=== PATIENT | female | born 1960 | race Caucasian/White ===

== ENCOUNTER 2016-03-30 17:22 | Emergency (ER) | payer MEDICARE, OTHER ==
[2016-03-30 17:35] VITALS: BP 123/77
[2016-03-30] MEDS ORDERED: NORMAL SALINE 1,000 ML IV ONE (17:54)
[2016-03-30] MEDS ORDERED: BISACODYL 5 MG TABLET.DR PO ONE (17:55)
[2016-03-30] MEDS ORDERED: MAGNESIUM CITRATE 300 ML BTL PO ONE ×2 (17:55→19:35)
[2016-03-30] MEDS ORDERED: SENNOSIDES 8.6 MG TABLET PO ONE (17:55)
[2016-03-30] MEDS ORDERED: BISACODYL 5 MG TABLET.DR ONE ×2 (18:01→18:06)
[2016-03-30] MEDS ORDERED: MAGNESIUM CITRATE 300 ML BTL ONE (18:01)
[2016-03-30] MEDS ORDERED: SENNOSIDES 8.6 MG TABLET ONE (18:01)
--- NOTE | 2016-03-30 18:08 | ERNOTE ---
Abdominal HPI - Narrative Date of Service: 03/30/16 - General Chief Complaint: Constipation Time Seen by Provider: 03/30/16 17:47 Source: patient Exam Limitations: no limitations - Immun/Allergies/Home Medications Immunizatons: IMMUNIZATION HX Immunizations Up to Date Yes History of Influenza Vaccine Yes Hx Pneumococcal Vaccination Yes Allergies/Adverse Reactions: Allergies lisinopril Allergy (Mild, Verified 03/30/16 17:35) cough doxycycline Adverse Reaction (Intermediate, Verified 03/30/16 17:35) Other "Severly elevated liver enzymes" metformin Adverse Reaction (Mild, Verified 03/30/16 17:35) HEADACHE, VOMITING adhesive Adverse Reaction (Verified 03/30/16 17:35) Home Medications: HOME MEDICATIONS Albuterol Sulfate [Proair Respiclick] 1 - 2 puff IH Q4H PRN 03/30/16 [Last Taken Unknown] Aspirin [David Chewable Aspirin] 81 mg PO DAILY 03/30/16 [Last Taken Unknown] Atenolol [Tenormin] 100 mg PO DAILY 03/30/16 [Last Taken Unknown] Atorvastatin Calcium [Lipitor] 20 mg PO HS 03/30/16 [Last Taken Unknown] Bisacodyl [Dulcolax] 5 mg PO DAILY #30 tab 03/30/16 [Last Taken Unknown] Cetirizine HCl [Zyrtec] 10 mg PO DAILY 03/30/16 [Last Taken Unknown] Docusate Sodium [Colace] 2 cap PO BID #120 capsule 03/30/16 [Last Taken Unknown] Duloxetine HCl [Cymbalta] 60 mg PO DAILY 03/30/16 [Last Taken Unknown] Ergocalciferol (Vitamin D2) [Vitamin D2] 2,000 units PO DAILY 03/30/16 [Last Taken Unknown] Esomeprazole Magnesium [Nexium] 40 mg PO DAILY 03/30/16 [Last Taken Unknown] Famotidine [Heartburn Prevention] 20 mg PO DAILY 03/30/16 [Last Taken Unknown] Gabapentin [Neurontin] 600 mg PO BID 03/30/16 [Last Taken Unknown] Insulin Aspart [Novolog] 10 units SC ACHS 03/30/16 [Last Taken Unknown] Insulin Glargine,Hum.rec.anlog [Lantus] 15 units SC BID 03/30/16 [Last Taken Unknown] Lamotrigine [Lamictal Xr] 100 mg PO DAILY 03/30/16 [Last Taken Unknown] Levothyroxine Sodium [Synthroid] 50 mcg PO DAILY 03/30/16 [Last Taken Unknown] Losartan/Hydrochlorothiazide [Hyzaar 100-12.5 Tablet] 1 each PO DAILY 03/30/16 [ Last Taken Unknown] Magnesium Hydroxide [Milk Of Magnesia] 30 ml PO DAILY PRN #900 ml 03/30/16 [ Last Taken Unknown] Multivitamin [One Daily Essential] 1 each PO DAILY 03/30/16 [Last Taken Unknown] Naproxen [Naprosyn] 500 mg PO BID PRN 03/30/16 [Last Taken Unknown] Sennosides/Docusate Sodium [Senokot-S] 2 tab PO BID #120 tab 03/30/16 [Last Taken Unknown] Topiramate [Topamax] 100 mg PO BID 03/30/16 [Last Taken Unknown] traMADol HCL [Ultram] 50 mg PO BID 03/30/16 [Last Taken Unknown] - History of Present Illness Narrative: Decades of chronic constipation. Followed also in [place] for this. No BM for a week, right sided abdominal pain steadily worsening. No vomiting. Unable to get her bowels to move. Timing: constant, getting worse Quality: moderate, cramping Activities at Onset: none Modifying Factors - (Improves): Present: other - nothing Modifying Factors - (Worsens): Present: eating Associated Symptoms: Present: loss of appetite, swelling/mass in abdomen Prior Abdominal Problems: Present: similar symptoms Prior Treatment: Present: recently seen. Absent: currently on antibiotics Review of Systems - Review of Systems Constitutional: Present: no symptoms reported EYE: Present: no symptoms reported ENT: Present: no symptoms reported Respiratory: Present: no symptoms reported Cardiology: Present: no symptoms reported Gastrointestinal/Abdominal: Present: See HPI Genitourinary: Present: no symptoms reported Musculoskeletal: Present: no symptoms reported Skin: Present: no symptoms reported Neurological: Present: no symptoms reported Endocrine: Present: no symptoms reported Hematologic/Lymphatic: Present: no symptoms reported Psych: Present: no symptoms reported All Other Systems: All systems neg except as marked - Patient's Past Medical History Patient History - Medical: Anemia, Anxiety, Arthritis, Diabetes Type 2, Depression, Fibromyalgia, GERD, Headache, Hypothyroidism, Seizures, UTI'S Patient History - Cardiac/Respiratory: Hypertension Patient History - Cancer: No Hx of Cancer Patient History - Surgical Procedures: Appendectomy, Cholecystectomy, Colonoscopy, EGD, Tubal Ligation - Family History Mother Family History - Medical: , Alzheimer's Disease Family History - Cardiac/Respiratory: No pertinent hx Father Family History - Medical: , Diabetes Type 2 Family History - Cardiac/Respiratory: Myocardial Infarction - Social History Living Situations: spouse Smoking Status: Never smoker Have you smoked in the past 12 months: No Alcohol Use: none Drug Use: none Physical Exam - Physical Exam General Appearance: Present: wd/wn, alert, no apparent distress, anxious Eye Exam: Normal inspection: bilateral, PERRL: bilateral, EOMI: bilateral Ears, Nose, Throat: Present: normal ENT inspection, hearing grossly normal Neck: Present: normal inspection Respiratory: Present: no respiratory distress, normal breath sounds Cardiovascular/Chest: Present: regular rate, rhythm, no murmur Gastrointestinal/Abdominal: Present: normal bowel sounds, soft, tenderness - diffuse mild tenderness, distended Back Exam: Present: normal inspection, no CVA tenderness, no vertebral tenderness Extremity Exam: Present: normal inspection, non-tender Neurological Exam: Present: alert, oriented, normal mood/affect, no motor/ sensory deficits Skin Exam: Present: normal color, warm/dry ED Progress - Results and Orders Patient's Lab Results:: I have reviewed the patient's lab results. - Vital Signs Patient's Vital Signs:: I have reviewed the patient's vital signs. Vital Signs: Vital Signs 03/30/16 17:29 Temperature 36.2 C L Pulse Rate 63 Respiratory 14 Rate Blood Pressure 123/77 O2 Sat by Pulse 99 Oximetry - X-Ray X-Ray #1 X-Ray: abdomen Interpretation: Interp. by me - gas and retained stool - Progress/Reassessment Chief Complaint: Constipation Progress:: Improved Departure - Departure Clinical Impression: Constipation Qualifiers: Constipation type: slow transit constipation Qualified Code(s): K59.01 - Slow transit constipation Disposition: Home self-care Condition: Good Instructions: Constipation, Adult, [id number] Additional Instructions: Take your medication for constipation very regularly. Obtain and read the book "Gulp" See your doctor in 1-2 weeks. Referrals: [Primary Care Provider] - Prescriptions: Bisacodyl [Dulcolax] 5 mg PO DAILY #30 tab Docusate Sodium [Colace] 2 cap PO BID #120 capsule Magnesium Hydroxide [Milk Of Magnesia] 30 ml PO DAILY PRN #900 ml PRN Reason: Constipation Sennosides/Docusate Sodium [Senokot-S] 2 tab PO BID #120 tab
[2016-03-30 18:10] LABS: Hematocrit 43.1 % (37.0-47.0); Hemoglobin 13.9 gm/dL (12.5-16.0); Mean Cell Volume 95.1 fl (78-100); Mean Corpuscular Hemoglobin 30.7 pg (27-31); Mean Corpuscular Hgb Conc 32.3 g/dl (32-36); Mean Platelet Volume 10.2 fl (6.0-9.5); Neutrophil # 5.6 K/mm3 (1.3-6.0); Neutrophil % 57.4 % (42-75.0); Platelet Count 312 K/mm3 (150-450); Red Blood Count 4.53 M/mm3 (4.2-5.4); Red Cell Distribution Width 12.5 % (11.5-14.0); White Blood Count 9.8 K/mm3 (4.0-10.5)
[2016-03-30 18:23] LABS: Albumin * 3.7 gm/dl (3.4-5.0); Anion Gap 13.4 mmol/L (6.8-13.8); BUN/Creatinine Ratio 17.3 (9.0-21.6); Bilirubin, Total 0.2 mg/dL (0.0-1.1); Ca. Corrected For Albumin 8.9 mg/dL (8.4-10.2); Carbon Dioxide 28.2 mmol/L (24-32.6); Potassium 3.6 mmol/L (3.4-4.6); Total Protein 7.5 gm/dL (6.2-8.2)
== END 2016-03-30 20:36 | disposition home or self-care (01) ==
LOC: ER 17:22
DX: K59.01 Slow transit constipation (principal); Z90.49 Acquired absence of other specified parts of digestive tract; E11.9 Type 2 diabetes mellitus without complications; K21.9 Gastro-esophageal reflux disease without esophagitis; E03.9 Hypothyroidism, unspecified; F32.9 Major depressive disorder, single episode, unspecified

== ENCOUNTER 2016-11-24 12:28 | Emergency (ER) | payer MEDICARE, OTHER ==
[2016-11-24 12:41] VITALS: BP 139/89
[2016-11-24 13:27] LABS: Hematocrit 39.8 % (37.0-47.0); Hemoglobin 13.8 gm/dL (12.5-16.0); Mean Cell Volume 90.2 fl (78-100); Mean Corpuscular Hemoglobin 31.3 pg (27-31); Mean Corpuscular Hgb Conc 34.7 g/dl (32-36); Mean Platelet Volume 10.2 fl (6.0-9.5); Neutrophil % 53.1 % (42-75.0); Platelet Count 255 K/mm3 (150-450); Red Blood Count 4.41 M/mm3 (4.2-5.4); Red Cell Distribution Width 12.3 % (11.5-14.0); White Blood Count 7.5 K/mm3 (4.0-10.5)
--- NOTE | 2016-11-24 13:45 | ERNOTE ---
Medical Problem HPI - Narrative Date of Service: 11/24/16 - General Chief Complaint: General Assessment Time Seen by Provider: 11/24/16 12:45 Source: patient Exam Limitations: no limitations - Immun/Allergies/Home Medications Immunizations: IMMUNIZATION HX Immunizations Up to Date Yes History of Influenza Vaccine Yes Hx Pneumococcal Vaccination Yes Allergies/Adverse Reactions: Allergies lisinopril Allergy (Mild, Verified 11/24/16 12:41) cough oxycodone Allergy (Verified 11/24/16 12:41) doxycycline Adverse Reaction (Intermediate, Verified 11/24/16 12:41) Other "Severly elevated liver enzymes" metformin Adverse Reaction (Mild, Verified 11/24/16 12:41) HEADACHE, VOMITING adhesive Adverse Reaction (Verified 11/24/16 12:41) Home Medications: HOME MEDICATIONS Albuterol Sulfate [Proair Respiclick] 1 - 2 puff IH Q4H PRN 03/30/16 [Last Taken Unknown] Aspirin [David Chewable Aspirin] 81 mg PO DAILY 03/30/16 [Last Taken Unknown] Atenolol [Tenormin] 100 mg PO DAILY 03/30/16 [Last Taken Unknown] Atorvastatin Calcium [Lipitor] 20 mg PO HS 03/30/16 [Last Taken Unknown] Cetirizine HCl [Zyrtec] 10 mg PO DAILY 03/30/16 [Last Taken Unknown] Gabapentin [Neurontin] 600 mg PO BID 03/30/16 [Last Taken Unknown] Insulin Aspart [Novolog] 10 units SC ACHS 03/30/16 [Last Taken Unknown] Insulin Glargine,Hum.rec.anlog [Lantus] 15 units SC BID 03/30/16 [Last Taken Unknown] Levothyroxine Sodium [Synthroid] 50 mcg PO DAILY 03/30/16 [Last Taken Unknown] Losartan/Hydrochlorothiazide [Hyzaar 100-12.5 Tablet] 1 each PO DAILY 03/30/16 [ Last Taken Unknown] Multivitamin [One Daily Essential] 1 each PO DAILY 03/30/16 [Last Taken Unknown] Sennosides/Docusate Sodium [Senokot-S] 2 tab PO BID #120 tab 03/30/16 [Last Taken Unknown] Topiramate [Topamax] 100 mg PO BID 03/30/16 [Last Taken Unknown] lamoTRIgine [Lamictal Xr] 150 mg PO DAILY 03/30/16 [Last Taken Unknown] traMADol HCL [Ultram] 50 mg PO BID 03/30/16 [Last Taken Unknown] Docusate Sodium [Colace] 1 cap PO BID 11/24/16 [Last Taken Unknown] Haloperidol [Haldol] 1 mg PO BID #30 tablet 11/24/16 [Last Taken Unknown] - History of Present History Narrative: Pt. comes in with c/o depression, anxiety, fatigue, malaise, generalized pain, and palpitations, for 4 days. Pt. has a hx of mental illness and her topamax and Valium was increased on Thursday by Dr Eaton and pt. states that after she took the increased dosage she felt like she was extremely fatigued with heaviness of her limbs and palpitations then she stopped taking the valium and cut the topamax in half and developed more palpitations and fatigue. Review of Systems - Review of Systems Constitutional: Present: weakness, fatigue, malaise, decreased activity level EYE: Present: no symptoms reported ENT: Present: no symptoms reported Respiratory: Present: no symptoms reported. Absent: shortness of breath, cough , wheezing Cardiology: Present: palpitations. Absent: chest pain, syncope, edema Gastrointestinal/Abdominal: Present: no symptoms reported Genitourinary: Present: no symptoms reported Musculoskeletal: Present: no symptoms reported. Absent: back pain, joint pain Skin: Present: no symptoms reported. Absent: rash, change in color Neurological: Present: no symptoms reported. Absent: headache, dizziness/light- headedness, numbness, tingling Psych: Present: anxiety, depressed, emotional problems All Other Systems: All systems neg except as marked - Patient's Past Medical History Patient History - Medical: Anemia, Anxiety, Arthritis, Diabetes Type 2, Depression, Fibromyalgia, GERD, Headache, Hypothyroidism, Seizures, UTI'S Patient History - Cardiac/Respiratory: Asthma, Hypertension, Hyperlipidemia, Sleep Apnea Patient History - Cancer: No Hx of Cancer Patient History - Surgical Procedures: Appendectomy, Cholecystectomy, Colonoscopy, EGD, Tubal Ligation Patient History - Other: None - Family History Mother Family History - Medical: , Alzheimer's Disease Family History - Cardiac/Respiratory: No pertinent hx Father Family History - Medical: , Diabetes Type 2 Family History - Cardiac/Respiratory: Myocardial Infarction - Social History Living Situations: home Abuse History: No History of abuse Psych History: Hx of Anxiety, Hx of Depression, Current tx/ever been on anti- depressants or anti-anxiety meds Alcohol Use: none Drug Use: none - Immunizations Immunizations Up to Date: Yes Hx Pneumococcal Vaccination: Yes History of Influenza Vaccine: Yes Physical Exam - Physical Exam General Appearance: Present: wd/wn, alert, no apparent distress Head Exam: Present: normal inspection, no evidence of injury Eye Exam: Normal inspection: bilateral, PERRL: bilateral, EOMI: bilateral Ears, Nose, Throat: Present: normal ENT inspection, normal pharynx Neck: Present: normal inspection, nontender. Absent: lymphadenopathy (R), lymphadenopathy (L) Respiratory: Present: no respiratory distress, normal breath sounds, no accessory muscle use, chest nontender, lungs clear Cardiovascular/Chest: Present: regular rate, rhythm, no murmur, normal peripheral pulses Gastrointestinal/Abdominal: Present: normal bowel sounds, nontender, nondistended, soft, no organomegaly Back Exam: Present: normal inspection, normal range of motion, no CVA tenderness , no vertebral tenderness Extremity Exam: Present: normal inspection, non-tender, normal range of motion, no edema Neurological Exam: Present: alert, oriented, no motor/sensory deficits, other - depressed mood tearful Skin Exam: Present: normal color, warm/dry. Absent: pallor, skin rash ED Progress - Date and Time Seen: Date and Time: 11/24/16 13:43 As pt. is tearful and has been experiencing multiple medication changes that can affect her and develop these symptoms feel that the medication plus her underlying mental condition is the reason for her symptomology and will discuss with Dr Eaton after clearing her medically. 11/24/16 14:[address] Eaton and he recommends starting pt. on Haldol for symptom management. 11/24/16 15:01 Pt. less anxious after haldol injection but is fatigued so will start on this very low dosage. - Results and Orders Patient's Lab Results:: I have reviewed the patient's lab results. - Vital Signs Patient's Vital Signs:: I have reviewed the patient's vital signs. Vital Signs: Vital Signs 11/24/16 12:38 Temperature 36.5 C Pulse Rate 104 H Respiratory 12 Rate Blood Pressure 139/89 O2 Sat by Pulse 97 Oximetry - EKG EKG: NSR EKG read: Reviewed by me EKG Comments: interp by Dr Fisher - Progress/Reassessment Chief Complaint: General Assessment Departure - Departure Clinical Impression: Anxiety and depression Medication adverse effect Qualifiers: Encounter type: initial encounter Qualified Code(s): T88.7XXA - Unspecified adverse effect of drug or medicament, initial encounter Disposition: Home self-care Additional Instructions: Please follow up with Dr Eaton in 1-2 days. Referrals: Eddie Hartmann DO [Primary Care Provider] - Prescriptions: Haloperidol [Haldol] 1 mg PO BID #30 tablet
[2016-11-24 13:48] LABS: ALT 38 U/L (19-67); AST 25 U/L (0-48); Albumin * 3.4 gm/dl (3.4-5.0); Alkaline Phosphatase * 125 U/L (50-170); Anion Gap 13.9 mmol/L (6.8-13.8); BUN/Creatinine Ratio 12.1 (9.0-21.6); Bilirubin, Total 0.2 mg/dL (0.0-1.1); Blood Urea Nitrogen 12 mg/dL (3-23); Ca. Corrected For Albumin 10.3 mg/dL (8.4-10.2); Calcium * 10.1 mg/dL (7.9-10.9); Carbon Dioxide 27.5 mmol/L (24-32.6); Chloride 104 mmol/L (97-106); Glucose * 157 mg/dL (70-110); Potassium 3.4 mmol/L (3.4-4.6); Sodium 142 mmol/L (132-142); TSH * 3.117 uIU/mL (0.358-3.74)
[2016-11-24] MEDS ORDERED: HALOPERIDOL LACTATE 5 MG/ML VIAL IM ONE (13:56)
[2016-11-24 14:01] LABS: Urine Bilirubin Negative (NEGATIVE); Urine Blood Negative /ul (NEGATIVE); Urine Ketone Negative (NEGATIVE); Urine Nitrite Negative (NEGATIVE); Urine Protein Negative (NEGATIVE); Urine Specific Gravity <=1.005 SP.GR. (1.005-1.010); Urine Urobilinogen Normal (NORMAL)
[2016-11-24] MEDS ORDERED: HALOPERIDOL LACTATE 5 MG/ML VIAL ONE (14:07)
[2016-11-24 14:13] LABS: Urine Appearance Clear; Urine Bacteria None Seen; Urine Color Yellow; Urine RBC None Seen /hpf (0-5); Urine WBC None Seen /hpf (0-5); Urine Yeast TRACE
[2016-11-24 15:07] LABS: Cocaine Ur Negative (NEGATIVE); Urine Barbiturate Negative (NEGATIVE); Urine Benzodiazepines Negative (NEGATIVE); Urine Opiates Negative (NEGATIVE); Urine PCP Negative (NEGATIVE); Urine THC Negative (NEGATIVE)
== END 2016-11-24 15:13 | disposition home or self-care (01) ==
LOC: ER 12:28
DX: F41.8 Other specified anxiety disorders (principal); T88.7XXA Unspecified adverse effect of drug or medicament, initial encounter; D64.9 Anemia, unspecified; M19.90 Unspecified osteoarthritis, unspecified site; M79.7 Fibromyalgia; K21.9 Gastro-esophageal reflux disease without esophagitis; E03.9 Hypothyroidism, unspecified; I10 Essential (primary) hypertension; E78.5 Hyperlipidemia, unspecified
CPT/HCPCS: 36415; 80053; 80307; 81001; 84443; 85025; 93005; 96372; 99285; G0481

== ENCOUNTER 2016-11-28 18:41 | Emergency (ER) | payer MEDICARE, OTHER ==
[2016-11-28 19:39] LABS: Hematocrit 40.6 % (37.0-47.0); Mean Corpuscular Hemoglobin 31.4 pg (27-31); Mean Corpuscular Hgb Conc 34.5 g/dl (32-36); Mean Platelet Volume 10.1 fl (6.0-9.5); Neutrophil # 3.9 K/mm3 (1.3-6.0); Neutrophil % 49.9 % (42-75.0); Platelet Count 254 K/mm3 (150-450); Red Blood Count 4.46 M/mm3 (4.2-5.4); Red Cell Distribution Width 12.1 % (11.5-14.0); White Blood Count 7.9 K/mm3 (4.0-10.5)
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
[2016-11-28 19:58] LABS: ALT 39 U/L (19-67); AST 28 U/L (0-48); Albumin * 3.5 gm/dl (3.4-5.0); Alkaline Phosphatase * 119 U/L (50-170); Anion Gap 12.4 mmol/L (6.8-13.8); BUN/Creatinine Ratio 10.7 (9.0-21.6); Bilirubin, Total 0.4 mg/dL (0.0-1.1); Blood Urea Nitrogen 12 mg/dL (3-23); Ca. Corrected For Albumin 10.6 mg/dL (8.4-10.2); Calcium * 10.5 mg/dL (7.9-10.9); Carbon Dioxide 29.9 mmol/L (24-32.6); Chloride 103 mmol/L (97-106); Glucose * 198 mg/dL (70-110); Potassium 3.3 mmol/L (3.4-4.6); Sodium 142 mmol/L (132-142); Troponin I Less than 0.017 ng/ml (0.00-0.10)
[2016-11-28 20:50] VITALS: BP 119/71
== END 2016-11-28 20:40 | disposition home or self-care (01) ==
LOC: ER 18:41
DX: R00.2 Palpitations (principal); R55 Syncope and collapse; Z87.440 Personal history of urinary (tract) infections; Z87.891 Personal history of nicotine dependence; E11.9 Type 2 diabetes mellitus without complications; Z79.4 Long term (current) use of insulin; E03.9 Hypothyroidism, unspecified; I10 Essential (primary) hypertension; E78.5 Hyperlipidemia, unspecified; D64.9 Anemia, unspecified; F31.9 Bipolar disorder, unspecified